=== PATIENT | female | born 1985 | race Caucasian/White ===

== ENCOUNTER 2017-05-27 11:59 | Emergency (ER) | payer BC ==
[~2017-05-27] VITALS: Ht 170.2 cm; Wt 64.9 kg
[2017-05-27 12:12] VITALS: BP 128/69; PULSE 59
--- NOTE | 2017-05-27 12:14 | PD ---
HPI Chief Complaint Vaginal spotting Travel History International Travel<30 Days: No Contact w/Intl Traveler<30Days: No Known Affected Area: No History of Present Illness HPI 31-year-old , early at 5 weeks and 6 days by her last menstrual period care complicated by history of SAB 2, and process of establishing care with Dr. Griffin The patient presents complaining of vaginal spotting. She reports today it is light brown/ortiz in nature. She reports she had intercourse on March 28 and . Her last menstrual period was 04/16/17. She reports that she started having light spotting on May 05 that was brown. On May 10 she had some red bleeding heavier than spotting so she placed a tampon thinking she was getting her period early but when removing the tampon there was no blood noted on the tampon. Since then she is warned a panty liner every day and had brown spotting but 8 has not been required to change the panty liner. She reports on May 25 she strained to have a bowel movement and had pinkish or red tinged spotting after but since it has remained brown and today changed in color to be ortiz. She denies any intercourse since April 02. She reports that on May 18 she took a test that was out of date but was positive. She reports that she took 2 additional urine tests that were positive. She reports that she is feeling nausea but denies other symptoms. This is a desired and she is excited about the . She reports that she had a completed miscarriage in 2008, followed by vaginal delivery for preeclampsia at 36.6. She was placed on progesterone for her third which failed to develop correctly and she underwent an D&C in 2014. She has an appointment upcoming with Dr. Griffin at 8 weeks to establish care; however, since she does not establish patient the office earlier this they will see her is 8 weeks. She did have a progesterone level ordered a week ago by the office that she reports was normal. Para: 1 : 4 Miscarriage: 2 History Past Medical History Medical History: Denies Significant Hx Obstetric History Obstetric History SAB 2 (complete AB 2008, incomplete AB with D&C 2014) 1, delivered at 36.6 for preeclampsia Past Surgical History Narrative Surgical D&C, 2015 Laparoscopic shoulder surgery, 2002 Rosamond teeth extraction Family History Narrative Family History HTN, elevated cholesterol Social History Alcohol Use: No Tobacco Use: No Substance Abuse: No Allergies-Medications (Allergen,Severity, Reaction): Coded Allergies: Sulfa (Sulfonamide Antibiotics) (Verified Allergy, Unknown, hives, 05/27/17 ) Review of Systems Except as stated in HPI: all other systems reviewed are Neg Physical Exam Narrative GENERAL: Well-nourished, well-developed patient. SKIN: Warm and dry. HEAD: Normocephalic and atraumatic. EYES: No scleral icterus. No injection or drainage. ENT: No nasal drainage noted. Mucous membranes pink. Airway patent. NECK: Supple, trachea midline. No JVD. CARDIOVASCULAR: Regular rate and rhythm without murmurs, gallops, or rubs. RESPIRATORY: Breath sounds equal bilaterally. No accessory muscle use. BREASTS: Deferred. ABDOMEN/GI: Abdomen soft, non-tender, bowel sounds present, no rebound, no guarding GENITOURINARY: External Genitalia: intact and normal in appearance. Normal BUS. Speculum examination revealed no evidence of vaginal bleeding or spotting. A very light ortiz tinged discharge was noted that appeared physiologic in nature. The cervix appeared visibly grossly normal and closed. Normal rugated were noted, no cervical or vaginal masses were appreciated. A bimanual examination revealed cervix is closed/thick/high, uterus palpated approximately 6-8 weeks size, no adnexal masses were appreciated. FHT's: Deferred EXTREMITIES: No cyanosis or edema. BACK: Nontender without obvious deformity. NEUROLOGICAL: Awake and alert. Motor and sensory grossly within normal limits. Five out of 5 muscle strength in all muscle groups. Normal speech. Psychiatric: Grossly normal memory and affect Musculoskeletal grossly normal range of motion, gait, muscle strength MDM Plan Assessment/plan: 31-year-old 1. Early : IUP with gestational sac measuring 5 weeks and 3 days noted on ultrasound. Ultrasound images were reviewed and a gestational sac and yolk sac appeared to be present. The initial radiology report did not indicate the presence of a yolk sac however I spoke with [facility] dietetic tech who reviewed the written preliminary report from examination and a yolk sac is noted to be present. Discussed with the patient that dating typically utilizes crown-rump length. Discussed ultrasound findings with patient. Quantitative beta hCG 10,337. All of patient's questions were answered, we discussed the possibility of follow-up beta-hCG but I will defer that to her primary physician. We also discussed a repeat ultrasound in 1 week for further evaluation of intrauterine , again I will defer that to her primary physician 2. Vaginal spotting: Possible threatened AB, however no evidence of bleeding on evaluation today, strict bleeding precautions. Patient was reassured by ultrasound findings an beta-hCG. 3. Patient reports history of low progesterone and received progesterone supplementation the previous , progesterone level was ordered however is pending 4. Rh: B+ 5. Follow-up with primary OB in 2-3 days or sooner if needed Diagnosis Diagnosis: Primary Impression: Early stage of Additional Impression: Threatened in first trimester Disposition: 01 DISCHARGE HOME Condition: Ella Barksdale MD May 27, 2017 12:14
[2017-05-27 12:15] VITALS: RESP 16
[2017-05-27 13:01] LABS: MEAN CELL VOLUME 81.9 FL (80.0-100.0); MEAN CORPUSCULAR HEMOGLOBIN 27.1 PG (27.0-34.0); MEAN CORPUSCULAR HGB CONC 33.1 % (32.0-36.0); PLATELET COUNT 212 TH/MM3 (150-450); RED BLOOD COUNT 4.52 MIL/MM3 (4.00-5.30); RED CELL DISTRIBUTION WIDTH 12.8 % (11.6-17.2); REVIEW FLAG FINAL; WHITE BLOOD COUNT 8.2 TH/MM3 (4.0-11.0)
[2017-05-27 14:13] LABS: BETA HCG QUANT 10337 MIU/ML (0-5)
--- NOTE | 2017-05-27 16:08 | RADRPT ---
EXAM DATE/TIME: 05/27/2017 14:19 This report includes an Addendum and supersedes previous reports for this exam. [facility] COMPARISON: No previous studies available for comparison. INDICATIONS : Vaginal spotting since last menstrual period. Confirm intrauterine . LAB(S): Beta-hC MEDICAL HISTORY : . SURGICAL HISTORY : None. ENCOUNTER: Initial ACUITY: 1 day PAIN SCORE: 0/10 LOCATION: Bilateral pelvis MEASUREMENTS: UTERUS: 8.4 x 6.2 x 5.0 cm ENDOMETRIAL STRIPE: 12 mm RIGHT OVARY: 2.6 x 1.8 x 0.94 cm LEFT OVARY: 2.6 x 3.2 x 2.0 cm FREE FLUID: No CROWN RUMP LENGTH: not seen = WKS DAYS FHR: not seen BPM FINDINGS: UTERUS: An intrauterine gestational sac measuring 1.16 x 0.73 x 1.8 cm in size is noted. This compatible with a gestational age of 5 weeks and 3 days. pole is not identifiable. heart rate could not be measured. Myometrial mass containing calcification measuring 1.7 cm is noted in the fundus. RIGHT OVARY: Ovary contains no mass or significant cystic lesion. LEFT OVARY: Left ovary contains 2 cysts. A simple cyst measuring 1.1 cm and a complex cyst measures 1.2 cm. MISCELLANEOUS: No free fluid. CONCLUSION: 1. Intrauterine gestational sac with gestational age given above. 2. Fundal myometrial mass characteristic of a leiomyoma. 3. Complex left ovarian cyst which measured a corpus luteal cyst. 4. No evidence of complex adnexal masses. Srinivasan Araujo MD on May 27, 2017 at 16:01 Board Certified Radiologist. This report was verified electronically. ADDENDUM: A yolk sac was identified within the gestational sac. Srinivasan Araujo MD on May 27, 2017 at 16:36 Board Certified Radiologist. This report was verified electronically.
== END 2017-05-27 15:19 | disposition home or self-care (01) ==
LOC: HOBED 11:59
DX: O20.0 Threatened abortion (principal); O34.81 Maternal care for other abnormalities of pelvic organs, first trimester; N83.202 Unspecified ovarian cyst, left side; Z3A.01 Less than 8 weeks gestation of pregnancy; Z88.2 Allergy status to sulfonamides
CPT/HCPCS: 36415; 76801; 76817; 84144; 84702; 85027; 86900; 86901

== ENCOUNTER → 2017-05-29 | Outpatient (CLI) | payer BC ==
[2017-05-29 15:06] LABS: BETA HCG QUANT 18582 MIU/ML (0-5)
== END ==
LOC: CLAB 14:05
PROVIDERS: ATTEND Obstetrics & Gynecology
DX: O20.0 Threatened abortion (principal)
CPT/HCPCS: 36415; 84702

== ENCOUNTER → 2017-06-09 | Outpatient (CLI) | payer BC | LOC: HPND 13:25 | PROVIDERS: ATTEND Obstetrics & Gynecology | DX: O36.80X1 Pregnancy with inconclusive fetal viability, fetus 1 (principal); Z3A.00 Weeks of gestation of pregnancy not specified | CPT/HCPCS: 76801; 76817 ==

== ENCOUNTER → 2017-06-26 | Outpatient (CLI) | payer BC | LOC: HPND 09:58 | PROVIDERS: ATTEND Obstetrics & Gynecology | DX: O36.80X0 Pregnancy with inconclusive fetal viability, not applicable or unspecified (principal); O09.291 Supervision of pregnancy with other poor reproductive or obstetric history, first trimester | CPT/HCPCS: 76801 ==

== ENCOUNTER → 2017-08-20 | Outpatient (CLI) | payer BC | LOC: HPND 08:04 | PROVIDERS: ATTEND Obstetrics & Gynecology | DX: O09.212 Supervision of pregnancy with history of pre-term labor, second trimester (principal); O09.291 Supervision of pregnancy with other poor reproductive or obstetric history, first trimester; Z36.3 Encounter for antenatal screening for malformations | CPT/HCPCS: 76811 ==

== ENCOUNTER → 2017-10-16 | Outpatient (CLI) | payer BC | LOC: HPND 08:01 | PROVIDERS: ATTEND Obstetrics & Gynecology | DX: O09.292 Supervision of pregnancy with other poor reproductive or obstetric history, second trimester (principal) | CPT/HCPCS: 76816 ==

== ENCOUNTER → 2017-11-18 | Outpatient (CLI) | payer BC | LOC: HPND 08:51 | PROVIDERS: ATTEND Obstetrics & Gynecology | DX: O09.293 Supervision of pregnancy with other poor reproductive or obstetric history, third trimester (principal) | CPT/HCPCS: 76816 ==

== ENCOUNTER 2017-12-12 15:57 | Emergency (ER) | payer BC ==
[2017-12-12] MEDS ORDERED: SOD PHOSPHATE/SOD BIPHOSPHATE (ADULT) ENEMA 133ML RECTAL ONE (17:15)
--- NOTE | 2017-12-12 17:19 | PD ---
HPI Chief Complaint pt present c/o pelvic pressure and pain Date Seen: Dec 12, 2017 Time Seen: 16:45 Travel History International Travel<30 Days: No Contact w/Intl Traveler<30Days: No Known Affected Area: No History of Present Illness HPI pt presents c/o pelvic pressure and pain. symptoms are worse with walking. denies sick contacts. hx of contractions with prior and preeclampsia. pt admits to 4 day hx of constipation. denies dysuria, urgency or hematuria. + fm, denies vb/lof Weeks Gestation: 34 Para: 1 : 4 Miscarriage: 2 : 0 History Past Medical History Medical History: Denies Significant Hx Obstetric History Obstetric History SAB X 1 MAB X 1 36 wk Past Surgical History Narrative Surgical D&C with suction Family History Family History: Negative Social History Alcohol Use: No Tobacco Use: No Substance Abuse: No Allergies-Medications (Allergen,Severity, Reaction): Coded Allergies: Sulfa (Sulfonamide Antibiotics) (Verified Allergy, Unknown, hives, 05/27/17 ) Narrative Medication PNV Review of Systems Except as stated in HPI: all other systems reviewed are Neg Physical Exam 135/81 Narrative GENERAL: Well-nourished, well-developed patient. SKIN: Warm and dry. HEAD: Normocephalic and atraumatic. EYES: No scleral icterus. No injection or drainage. ENT: No nasal drainage noted. Mucous membranes pink. Airway patent. NECK: Supple, trachea midline. No JVD. CARDIOVASCULAR: Regular rate and rhythm without murmurs, gallops, or rubs. RESPIRATORY: Breath sounds equal bilaterally. No accessory muscle use. BREASTS: Bilateral exam showed no masses , no retractions, no nipple discharge. ABDOMEN/GI: Abdomen soft, non-tender, bowel sounds present, no rebound, no guarding Gravid to [-] weeks size 34 Fundal Height: [-] GENITOURINARY: External Genitalia: intact and normal in appearance BUS glands: [-] Cervix: [-] Dilatation: [-] cl Effacement: [-] soft Station: [-] high Presentation: [-] vtx Membranes: [intact] Uterine Contractions: [-] irregular/irritability FHT's: Category: [-] 1 Baseline: [-] Reactive: [-] Variability: [-] Decels: [-] EXTREMITIES: No cyanosis or edema. BACK: Nontender without obvious deformity. No CVA tenderness. NEUROLOGICAL: Awake and alert. Motor and sensory grossly within normal limits. Five out of 5 muscle strength in all muscle groups. Normal speech. Data Data Vital Signs Reviewed: Yes Orders Orders Vital Signs (Adult) .ON ADMISSION (12/12/17 17:06) ^ Labor Status (12/12/17 17:06) Heart (12/12/17 17:06) Urinalysis - C+S If Indicated (12/12/17 17:06) ^ Non Stress Test (12/12/17 17:06) ^ Hydration (12/12/17 17:06) Diet Regular Basic (12/12/17 Dinner) Fleets Enema (Adult) (Fleets Enema (Adul (12/12/17 17:15) MDM Medical Record Reviewed: Yes Interpretation(s) Constipation Pelvic pain Plan po hydration symptoms resolved after fleets enema Diagnosis Diagnosis: Primary Impression: Constipation Additional Impression: Pelvic pain affecting in third trimester, antepartum Disposition: 01 DISCHARGE HOME Condition: Stable Joselin Griffin MD Dec 12, 2017 17:19
[2017-12-12 17:29] LABS: BACTERIA, URINE OCC /hpf; BILIRUBIN, URINE NEG (NEG); BLOOD, URINE NEG (NEG); CALCIUM OXALATE CRYSTALS,URINE FEW /hpf; GLUCOSE,URINE NEG (NEG); HYALINE CAST, URINE 1 /lpf (RARE); KETONE, URINE TRACE mg/dL (NEG); MUCUS URINE FEW /lpf (OCC); NITRITE,URINE NEG (NEG); SQUAMOUS EPITHELIAL CELL URINE 2 /hpf (0-5); URINE COLOR YELLOW (YELLW/STRAW); URINE LEUKOCYTE ESTERASE NEG (NEG)
== END 2017-12-12 18:16 | disposition home or self-care (01) ==
LOC: HOBED 15:57
DX: O26.893 Other specified pregnancy related conditions, third trimester (principal); R10.2 Pelvic and perineal pain; O99.613 Diseases of the digestive system complicating pregnancy, third trimester; K59.00 Constipation, unspecified; Z3A.34 34 weeks gestation of pregnancy
CPT/HCPCS: 59025; 81001

== ENCOUNTER 2018-01-15 16:05 | Inpatient (IN) ==
[2018-01-15] MEDS ORDERED: Sod Chloride 0.9% Inj 1,000 ML IV.CONT PRN (17:22)
[2018-01-15] MEDS ORDERED: Oxytocin 30 Units/500ml Premix 30 UNITS/500 ML BAG IV.SIG PRN ×2 (17:22→17:40)
[2018-01-15] MEDS ORDERED: fentaNYL Citrate Inj 100 MCG/2 ML Ampul IV.PUSH PRN ×2 (17:22)
[2018-01-15] MEDS ORDERED: Naloxone Inj 0.4 MG/ML Vial IV.PUSH PRN (17:22)
[2018-01-15] MEDS ORDERED: Oxytocin 30 Units/500ml Premix 30 UNITS/500 ML BAG IV.SIG ONE (17:22)
[2018-01-15] MEDS ORDERED: Sodium Chlor 0.9% Inj 500 ML IV.SIG PRN (17:22)
[2018-01-15] MEDS ORDERED: Citric Acid/Sodium Citrate Liq 30 ML UDC PO SCH (17:30)
[2018-01-15 18:25] LABS: Baso # (Auto) 0.1 th/mm3 (0.0-0.2); Baso % (Auto) 0.4 % (0.0-2.0); Eos % (Auto) 0.3 % (0.0-4.0); Hematocrit 33.5 % (35.0-46.0); Hemoglobin 10.9 gm/dL (11.6-15.3); Lymph # (Auto) 1.7 th/mm3 (1.0-4.8); Lymph % (Auto) 14.5 % (9.0-44.0); Mean Corpuscular HGB Conc 32.7 % (32.0-36.0); Mean Corpuscular Hemoglobin 23.9 pg (27.0-34.0); Mean Corpuscular Volume 72.9 fL (80.0-100.0); Mean Platelet Volume 9.3 fL (7.0-11.0); Mono # (Auto) 0.6 th/mm3 (0.0-0.9); Neut # (Auto) 9.6 th/mm3 (1.8-7.7); Neut % (Auto) 79.8 % (16.0-70.0); Platelet Count 215 th/mm3 (150-450); Red Blood Count 4.59 mil/mm3 (4.00-5.30); Red Cell Distribution Width 14.3 % (11.6-17.2)
[2018-01-15 18:38] LABS: Bacteria,Urine Rare /hpf; Bilirubin,Urine Negative (Negative); Calcium Oxalate Crystals,Urine Occasional /hpf; Clarity,Urine Hazy (Clear); Color,Urine Yellow (Yellw/Straw); Glucose,Urine (UA) Negative (Negative); Leukocyte Esterase,Urine Negative (Negative); Mucus,Urine Few /lpf (Occasional); Nitrite,Urine Negative (Negative); Specific Gravity,Urine 1.023 (1.002-1.035); Squamous Epithelial Cell,Urine 1 /hpf (0-5)
[2018-01-15 18:56] LABS: Amphetamine Urine With Conf Neg (Neg); Benzodiazepine Urine With Conf Neg (Neg)
[2018-01-15] MEDS ORDERED: Lidocaine PF 1% Inj 30 ML Vial ONE (19:25)
[2018-01-15] MEDS ORDERED: fentaNYL 2MCG-Bupiv 0.125% Epi 150 ML EPIDURAL ONE (20:02)
[2018-01-15] MEDS ORDERED: fentaNYL Citrate Inj 100 MCG/2 ML Ampul EPIDURAL ONE (21:12)
[2018-01-15] MEDS ORDERED: fentaNYL 2MCG-Bupiv 0.125% Epi 150 ML EPIDURAL PRN (21:12)
[2018-01-16] MEDS ORDERED: Zolpidem Tartrate 5 MG Tablet PO PRN (00:03)
[2018-01-16] MEDS ORDERED: Ibuprofen 400 MG Tablet PO PRN (00:03)
[2018-01-16] MEDS ORDERED: Acetaminophen 325 MG Tablet PO PRN (00:03)
[2018-01-16] MEDS ORDERED: Bisacodyl 10 MG Supp RECTAL PRN (00:03)
[2018-01-16] MEDS ORDERED: Naloxone Inj 0.4 MG/ML Vial IV.PUSH PRN (00:03)
--- NOTE | 2018-01-16 00:12 | P.HPOB ---
History of Present Illness Service: obstetrics Primary Care Physician: Pipe Mckeon MD History of Present Illness: induction at 39 weeks Weeks Gestation:: 39 Para: 1 : 4 - Inpatient Certification I certify that the inpatient services were ordered in accordance with Medicare regulations governing the order. This includes certification that hospital inpatient services are reasonable and necessary and in the case of services not specified as inpatient-only under 42 CFR 419.22(n), that they are appropriately provided as inpatient services in accordance to with the 2-midnight benchmark under 43 CFR 412.3(e) Estimated Total Length of Stay (Days): 2 Plans for Post Hospital Care: Home Review of Systems All other systems reviewed negative except as stated in HPI PMFSH - Medical / Surgical Hx Neg / Unobtainable Medical Problems Denied: Yes Surgical History: No Previous Surgery (D&C and shoulder surgery) - Tobacco History Second Hand Smoke Exposure: No Tobacco Use In Past 30 Days: No Smoking Status: Never smoker - Travel History Recent Travel in the [place] Within the Last 8 Weeks: No Recent Travel Out of the Country Within the Last 8 Weeks: No Medications and Allergies Active Medications: Active Medications Citric Acid/Sodium Citrate (Sodium Citrate/Citric Acid Liq) 30 ml PO BYPRODUCTS OPERATOR ON LICENSE OF [facility] Stop: 01/19/18 17:29 Ephedrine Sulfate (Ephedrine/Ns Syringe) 10 mg IV.PUSH UNSCH PRN PRN Reason: SEE LABEL COMMENTS Stop: 01/16/18 21:14 Fentanyl Citrate (Fentanyl Inj) 100 mcg IV.PUSH Q1H PRN PRN Reason: PAIN SCALE 6 TO 10 Fentanyl Citrate (Fentanyl Inj) 50 mcg IV.PUSH Q1H PRN PRN Reason: Pain Scale 3 - 5 Lactated Ringer's (Lr 1000 Ml Inj) 1,000 mls @ 125 mls/hr IV.CONT .Q8H ON LICENSE OF [facility] Last Admin: 01/15/18 21:44 Dose: 125 mls/hr Lactated Ringer's (Lr 1000 Ml Inj) 1,000 mls @ 3,000 mls/hr IV.SIG UNSCH PRN PRN Reason: compromise or epidural Last Admin: 01/15/18 21:46 Dose: 3,000 mls/hr Sodium Chloride (Ns Inj) 500 mls @ 1,000 mls/hr IV.SIG UNSCH PRN PRN Reason: SEE LABEL COMMENTS Oxytocin (Pitocin 30 Units/Ns 500 Ml Premix) 30 units in 500 mls @ 2 mls/hr IV.SIG TITRATE PRN; Protocol PRN Reason: For induction of labor Sodium Chloride (Ns Inj) 1,000 mls @ 100 mls/hr IV.CONT .Q10H PRN PRN Reason: SEE LABEL COMMENTS Oxytocin (Pitocin 30 Units/Ns 500 Ml Premix) 30 units in 500 mls @ 2 mls/hr IV.SIG TITRATE PRN; Protocol PRN Reason: For induction of labor Last Admin: 01/15/18 17:53 Dose: 2 milliunit/min, 2 mls/hr Fentanyl/Bupivacaine/Sodium Chlor (Fentanyl 2 Mcg-Bupiv 0.125% Epi) 150 mls @ 12 mls/hr EPIDURAL PRN PRN PRN Reason: for Labor Pain Last Admin: 01/15/18 21:45 Dose: 12 mls/hr Lidocaine HCl (Xylocaine 1% Inj) 10 ml INFILTRATN PRN PRN PRN Reason: For episiotomy repair Stop: 01/17/18 17:21 Lidocaine HCl (Xylocaine 1% Inj) 0.1 ml I-DERMAL PRN PRN PRN Reason: For IV start Stop: 01/18/18 17:21 Metoclopramide HCl (Reglan Inj) 10 mg IV.PUSH ONCE PRN; Protocol PRN Reason: NAUSEA OR VOMITING Mineral Oil (Muri-Lube Oil) 10 ml TOPICAL PRN PRN PRN Reason: PRN perineal massage Miscellaneous Information (Misc Information) 1 each OTHER UNSCH PRN PRN Reason: SEE LABEL COMMENTS Stop: 01/16/18 21:14 Miscellaneous Information (Misc Information) 1 each OTHER UNSCH PRN PRN Reason: SEE LABEL COMMENTS Stop: 01/16/18 21:14 Naloxone HCl (Narcan Inj) 0.1 mg IV.PUSH Q2M PRN PRN Reason: for opiate reversal Ondansetron HCl (Zofran Odt) 4 mg PO Q6H PRN PRN Reason: NAUSEA OR VOMITING Last Admin: 01/15/18 21:05 Dose: 4 mg Allergies Allergy/AdvReac Type Severity Reaction Status Date / Time Sulfa (Sulfonamide Allergy Unknown hives Verified 05/27/17 12:14 Antibiotics) Exam Vital signs: Vital Signs 01/15/18 16:28 01/15/18 16:30 01/15/18 17:55 Temperature 98.1 F Pulse Rate 83 77 Respiratory Rate 16 18 Blood Pressure 129/84 131/71 01/15/18 18:41 01/15/18 19:00 01/15/18 19:15 Temperature Pulse Rate 80 75 Respiratory Rate 18 16 Blood Pressure 143/74 H 138/89 01/15/18 19:44 01/15/18 20:15 01/15/18 20:55 Temperature 98.1 F Pulse Rate 76 73 79 Respiratory Rate 16 16 Blood Pressure 158/77 H 136/83 148/80 H 01/15/18 20:58 01/15/18 21:02 01/15/18 21:09 Temperature Pulse Rate 71 75 81 Respiratory Rate 16 Blood Pressure 140/76 130/70 134/60 01/15/18 21:13 01/15/18 21:30 01/15/18 21:41 Temperature Pulse Rate 80 69 Respiratory Rate 16 Blood Pressure 126/66 121/65 01/15/18 22:02 01/15/18 22:15 01/15/18 22:38 Temperature Pulse Rate 73 74 Respiratory Rate 16 16 Blood Pressure 120/62 134/108 H 01/15/18 23:45 01/16/18 00:00 Temperature Pulse Rate 82 78 Respiratory Rate Blood Pressure 150/68 H 119/80 Intake & Output 01/15/18 01/15/18 01/16/18 06:59 18:59 06:59 Weight 84.368 kg Other: Weight On Admission 84.395 kg - Constitutional no acute distress - Routine HEENT Exam Head: Present: normocephalic - Routine Respiratory Exam Present: CTA bilaterally - Routine Cardiovascular Exam Present: RRR - Routine Abdominal Exam Present: soft, normoactive bowel sounds - Routine Extremities Exam Present: full ROM - Routine Skin Exam Present: intact - Routine Neurological Exam Present: alert, oriented X3 Results - Labs CBC & Chem 7: 01/15/18 16:40 Labs: Laboratory Results - last 24 hr 01/15/18 01/15/18 01/15/18 16:40 16:40 16:40 WBC 12.0 H RBC 4.59 Hgb 10.9 L Hct 33.5 L MCV 72.9 L MCH 23.9 L MCHC 32.7 RDW 14.3 Plt Count 215 MPV 9.3 Neut % (Auto) 79.8 H Lymph % (Auto) 14.5 Fleming % (Auto) 5.0 Eos % (Auto) 0.3 Baso % (Auto) 0.4 Neut # (Auto) 9.6 H Lymph # (Auto) 1.7 Fleming # (Auto) 0.6 Eos # (Auto) 0.0 Baso # (Auto) 0.1 WBC Differential . Differential Comment Auto diff final Urine Color Urine Clarity Urine pH Ur Specific [place] Urine Protein Urine Glucose (UA) Urine Ketones Urine Occult Blood Urine Nitrate Urine Bilirubin Urine Urobilinogen Ur Leukocyte Esterase Urine RBC Urine WBC Ur Squamous Epith Cells Calcium Oxalate Crystal Urine Bacteria Urine Mucus Micro UA Comment Urine Culture Comments Urine Opiates Screen Neg Ur Barbiturates Screen Neg Ur Amphetamine Screen Neg U Benzodiazepines Scrn Neg Urine Cocaine Screen Neg U Cannabinoids Screen Neg Blood Type B Positive 01/15/18 16:40 WBC RBC Hgb Hct MCV MCH MCHC RDW Plt Count MPV Neut % (Auto) Lymph % (Auto) Fleming % (Auto) Eos % (Auto) Baso % (Auto) Neut # (Auto) Lymph # (Auto) Fleming # (Auto) Eos # (Auto) Baso # (Auto) WBC Differential Differential Comment Urine Color Yellow Urine Clarity Hazy H Urine pH 6.0 Ur Specific Austin 1.023 Urine Protein 30 H Urine Glucose (UA) Negative Urine Ketones Trace H Urine Occult Blood Negative Urine Nitrate Negative Urine Bilirubin Negative Urine Urobilinogen Less than 2 Ur Leukocyte Esterase Negative Urine RBC Less than 1 Urine WBC 2 Ur Squamous Epith Cells 1 Calcium Oxalate Crystal Occasional H Urine Bacteria Rare H Urine Mucus Few H Micro UA Comment Culture not ind Urine Culture Comments Culture not ind Urine Opiates Screen Ur Barbiturates Screen Ur Amphetamine Screen U Benzodiazepines Scrn Urine Cocaine Screen U Cannabinoids Screen Blood Type Caprini VTE Risk Assessment Caprini VTE Risk Assessment: No/Low Risk (score <= 1) Caprini Risk Assessment Model: Point Value = 1 Point Value = 2 Point Value = 3 Point Value = 5 Age 41-60 Minor surgery BMI > 25 kg/m2 Swollen legs Varicose veins or History of unexplained or recurrent spontaneous Oral contraceptives or hormone replacement Sepsis (< 1 month) Serious lung disease, including pneumonia (< 1 month) Abnormal pulmonary function Acute myocardial infarction Congestive heart failure (< 1 month) History of inflammatory bowel disease Medical patient at bed rest Age 61-74 Arthroscopic surgery Major open surgery (> 45 min) Laparoscopic surgery (> 45 min) Malignancy Confined to bed (> 72 hours) Immobilizing plaster cast Central venous access Age >= 75 History of VTE Family history of VTE Factor V Leiden Prothrombin [id number] Lupus anticoagulant Anticardiolipin antibodies Elevated serum homocysteine Heparin-induced thrombocytopenia Other congenital or acquired thrombophilia Stroke (< 1 month) Elective arthroplasty Hip, pelvis, or leg fracture Acute spinal cord injury (< 1 month) Prophylaxis Regimen: Total Risk Factor Score Risk Level Prophylaxis Regimen 0-1 Low Early ambulation 2 Moderate Order ONE of the following: *Sequential Compression Device (SCD) *Heparin 5000 units SQ BID 3-4 Higher Order ONE of the following medications: *Heparin 5000 units SQ TID *Enoxaparin/Lovenox 40 mg SQ daily (WT < 150 kg, CrCl > 30 mL/min) *Enoxaparin/Lovenox 30 mg SQ daily (WT < 150 kg, CrCl > 10-29 mL/min) *Enoxaparin/Lovenox 30 mg SQ BID (WT < 150 kg, CrCl > 30 mL/min) AND/OR *Sequential Compression Device (SCD) 5 or more Highest Order ONE of the following medications: *Heparin 5000 units SQ TID (Preferred with Epidurals) *Enoxaparin/Lovenox 40 mg SQ daily (WT < 150 kg, CrCl > 30 mL/min) *Enoxaparin/Lovenox 30 mg SQ daily (WT < 150 kg, CrCl > 10-29 mL/min) *Enoxaparin/Lovenox 30 mg SQ BID (WT < 150 kg, CrCl > 30 mL/min) AND *Sequential Compression Device (SCD) Assessment and Plan - Diagnosis (1) 39 weeks gestation of Code(s): Z3A.39 - 39 weeks gestation of Status: Acute
[2018-01-16] MEDS ORDERED: Oxytocin 30 Units/500ml Premix 30 UNITS/500 ML BAG IV.CONT SCH (00:15)
--- NOTE | 2018-01-16 00:15 | P.OBDELI ---
Weeks Gestation: 39 Patient Started Active Labor: Yes Active Labor Start Date: 01/15/18 Active Labor Start Time: 18:00 Anesthesia: Epidural Episiotomy: none Vaginal Delivery: Normal Presentation: Occiput anterior Nuchal Cord: x1 Delayed Cord Clamping (45 sec): Yes Placenta: Spontaneous delivery, Intact, 3 vessel cord Laceration: 1 deg Repair: Chromic interrupted : Male, Single
[2018-01-16] MEDS: Benzocaine 20% Top Spray 60 ML Can TOPICAL PRN ×2 (03:30→20:53)
[2018-01-16] MEDS: Witch Hazel 50%/Glyderin 12.5% 40 Pad Jar RECTAL PRN ×2 (03:56→20:53)
--- NOTE | 2018-01-16 08:52 | P.PNOB ---
Subjective Post day: 1 Interval history: doing well Objective Vital Signs/I&O: Vital Signs 01/15/18 16:28 01/15/18 16:30 01/15/18 17:55 Temperature 98.1 F Pulse Rate 83 77 Respiratory Rate 16 18 Blood Pressure 129/84 131/71 01/15/18 18:41 01/15/18 19:00 01/15/18 19:15 Temperature Pulse Rate 80 75 Respiratory Rate 18 16 Blood Pressure 143/74 H 138/89 01/15/18 19:44 01/15/18 20:15 01/15/18 20:55 Temperature 98.1 F Pulse Rate 76 73 79 Respiratory Rate 16 16 Blood Pressure 158/77 H 136/83 148/80 H 01/15/18 20:58 01/15/18 21:02 01/15/18 21:09 Temperature Pulse Rate 71 75 81 Respiratory Rate 16 Blood Pressure 140/76 130/70 134/60 01/15/18 21:13 01/15/18 21:30 01/15/18 21:41 Temperature Pulse Rate 80 69 Respiratory Rate 16 Blood Pressure 126/66 121/65 01/15/18 22:02 01/15/18 22:15 01/15/18 22:38 Temperature Pulse Rate 73 74 Respiratory Rate 16 16 Blood Pressure 120/62 134/108 H 01/15/18 23:15 01/15/18 23:45 01/16/18 00:00 Temperature Pulse Rate 82 78 Respiratory Rate 18 18 18 Blood Pressure 150/68 H 119/80 01/16/18 00:10 01/16/18 00:45 01/16/18 01:51 Temperature Pulse Rate 74 Respiratory Rate 18 18 Blood Pressure 134/72 01/16/18 03:30 01/16/18 08:00 Temperature 98.3 F 97.9 F Pulse Rate 75 61 Respiratory Rate 18 18 Blood Pressure 139/65 99/53 L Intake & Output 01/15/18 01/16/18 01/16/18 18:59 06:59 18:59 Weight 84.368 kg Other: Weight On Admission 84.395 kg Result Diagrams: 01/15/18 16:40 Objective Remarks: GENERAL: Well-nourished, well-developed patient. ABDOMEN/GI: Abdomen soft, non-tender. Fundus: Firm, non-tender at umbilicus. GENITOURINARY: Light to moderate bleeding. EXTREMITIES: No cyanosis or edema, non-tender, without signs of DVT. Medications and IVs: Active Medications Acetaminophen (Tylenol) 650 mg PO Q4H PRN PRN Reason: PAIN SCALE 1 TO 2 Al Hydroxide/Mg Hydroxide (Milk Of Magnesia Liq) 30 ml PO Q12H PRN PRN Reason: Mild Constipation Benzocaine (Americaine 20% Top Garretson) 1 spray TOPICAL Q4H PRN PRN Reason: For Perineum Discomfort Last Admin: 01/16/18 03:30 Dose: 1 spray Bisacodyl (Dulcolax Supp) 10 mg RECTAL DAILY PRN PRN Reason: SEVERE CONSITIPATION Diphtheria/Pertussis/Tetanus Vacc (Boostrix Vaccine Inj) 0.5 ml IM .ONCE ONE Stop: 01/16/18 16:01 Oxytocin (Pitocin 30 Units/Ns 500 Ml Premix) 30 units in 500 mls @ 2 mls/hr IV.SIG TITRATE PRN; Protocol PRN Reason: For induction of labor Last Admin: 01/15/18 17:53 Dose: 2 milliunit/min, 2 mls/hr Ibuprofen (Motrin) 800 mg PO Q8H PRN PRN Reason: For cramping Lactulose (Lactulose Liq) 30 ml PO DAILY PRN PRN Reason: SEVERE CONSITIPATION Measles/Mumps/Rubella Vaccine Live (M-M-R Ii Vaccine Inj) 0.5 ml SQ .ONCE ONE Stop: 01/16/18 16:01 Naloxone HCl (Narcan Inj) 0.1 mg IV.PUSH Q2M PRN PRN Reason: for opiate reversal Ondansetron HCl (Zofran Odt) 4 mg PO Q6H PRN PRN Reason: NAUSEA OR VOMITING Oxycodone/Acetaminophen (Percocet 5/325 Mg) 1 tab PO Q4H PRN PRN Reason: PAIN SCALE 3 TO 5 Oxycodone/Acetaminophen (Percocet 5/325 Mg) 2 tab PO Q4H PRN PRN Reason: PAIN SCALE 6 TO 10 Senna/Docusate Sodium (Petrona-Colace) 1 tab PO BID [facility] Sennosides (Senokot) 17.2 mg PO Q12H PRN PRN Reason: Moderate Constipation Sodium Chloride (Ns Flush) 2 ml IV.FLUSH BID MEGHANN Sodium Chloride (Ns Flush) 2 ml IV.FLUSH PRN PRN PRN Reason: FLUSH AFTER USING IV ACCESS Witch Inez/Glycerin (Tucks Pads) 1 applicatio RECTAL QID PRN PRN Reason: HEMORRHOIDS Last Admin: 01/16/18 03:56 Dose: 1 applicatio Zolpidem Tartrate (Ambien) 5 mg PO HS PRN PRN Reason: SLEEP Assessment and Plan - Diagnosis (1) 39 weeks gestation of Code(s): Z3A.39 - 39 weeks gestation of Status: Acute
[2018-01-16] MEDS: Senna/Docusate Sodium 8.6/50 MG Tablet PO SCH ×2 (09:44→20:53)
[2018-01-16] MEDS: Ibuprofen 400 MG Tablet PO PRN ×2 (11:21→20:52)
[2018-01-16] MEDS ORDERED: Measles/Mumps/Rubella Vaccine Inj 0.5 ML Vial SQ ONE ×2 (16:00)
[2018-01-16] MEDS ORDERED: Diphtheria/Tetanus/Pertussis Vaccine Inj 0.5 ML Syringe IM ONE (16:00)
[2018-01-17 09:04] VITALS: BP 123/79; PULSE 68; RESP 16
[2018-01-17 09:05] VITALS: TEMP 98.1
[2018-01-17] MEDS: Ibuprofen 400 MG Tablet PO PRN (09:13)
[2018-01-17] MEDS: Senna/Docusate Sodium 8.6/50 MG Tablet PO SCH (09:13)
--- NOTE | 2018-01-17 10:48 | P.PNOB ---
Subjective Post day: 2 Objective Vital Signs/I&O: Vital Signs 01/16/18 20:00 01/17/18 08:00 Temperature 98.2 F 98.1 F Pulse Rate 65 68 Respiratory Rate 18 16 Blood Pressure 120/73 123/79 Result Diagrams: 01/15/18 16:40 Objective Remarks: GENERAL: Well-nourished, well-developed patient. ABDOMEN/GI: Abdomen soft, non-tender. Fundus: Firm, non-tender at umbilicus. GENITOURINARY: Light to moderate bleeding. EXTREMITIES: No cyanosis or edema, non-tender, without signs of DVT. Medications and IVs: Active Medications Acetaminophen (Tylenol) 650 mg PO Q4H PRN PRN Reason: PAIN SCALE 1 TO 2 Al Hydroxide/Mg Hydroxide (Milk Of Magnesia Liq) 30 ml PO Q12H PRN PRN Reason: Mild Constipation Benzocaine (Americaine 20% Top [place]) 1 spray TOPICAL Q4H PRN PRN Reason: For Perineum Discomfort Last Admin: 01/16/18 20:53 Dose: 1 spray Bisacodyl (Dulcolax Supp) 10 mg RECTAL DAILY PRN PRN Reason: SEVERE CONSITIPATION Oxytocin (Pitocin 30 Units/Ns 500 Ml Premix) 30 units in 500 mls @ 2 mls/hr IV.SIG TITRATE PRN; Protocol PRN Reason: For induction of labor Last Admin: 01/15/18 17:53 Dose: 2 milliunit/min, 2 mls/hr Ibuprofen (Motrin) 800 mg PO Q8H PRN PRN Reason: For cramping Last Admin: 01/17/18 09:13 Dose: 800 mg Lactulose (Lactulose Liq) 30 ml PO DAILY PRN PRN Reason: SEVERE CONSITIPATION Naloxone HCl (Narcan Inj) 0.1 mg IV.PUSH Q2M PRN PRN Reason: for opiate reversal Ondansetron HCl (Zofran Odt) 4 mg PO Q6H PRN PRN Reason: NAUSEA OR VOMITING Oxycodone/Acetaminophen (Percocet 5/325 Mg) 1 tab PO Q4H PRN PRN Reason: PAIN SCALE 3 TO 5 Oxycodone/Acetaminophen (Percocet 5/325 Mg) 2 tab PO Q4H PRN PRN Reason: PAIN SCALE 6 TO 10 Senna/Docusate Sodium ([place]-Colace) 1 tab PO BID [facility] Last Admin: 01/17/18 09:13 Dose: 1 tab Sennosides (Senokot) 17.2 mg PO Q12H PRN PRN Reason: Moderate Constipation Sodium Chloride (Ns Flush) 2 ml IV.FLUSH BID [facility] Last Admin: 01/16/18 14:13 Dose: Not Given Sodium Chloride (Ns Flush) 2 ml IV.FLUSH PRN PRN PRN Reason: FLUSH AFTER USING IV ACCESS Witch [place]/Glycerin (Tucks Pads) 1 applicatio RECTAL QID PRN PRN Reason: HEMORRHOIDS Last Admin: 01/16/18 20:53 Dose: 1 applicatio Zolpidem Tartrate (Ambien) 5 mg PO HS PRN PRN Reason: SLEEP Assessment and Plan - Diagnosis (1) 39 weeks gestation of Code(s): Z3A.39 - 39 weeks gestation of Status: Acute
[2018-01-17] MEDS: Benzocaine 20% Top Spray 60 ML Can TOPICAL PRN (13:07)
[2018-01-17] MEDS: Witch Hazel 50%/Glyderin 12.5% 40 Pad Jar RECTAL PRN (13:07)
== END 2018-01-17 16:33 | disposition home or self-care (01) ==
LOC: H2E 16:05 → H1EA 01-16 03:26 → UNDODISIN 01-16 10:03
PROVIDERS: ADMIT Obstetrics & Gynecology; ATTEND Obstetrics & Gynecology